=== PATIENT | female | born 1970 | race Hispanic/Latino ===

== ENCOUNTER 2022-09-20 15:54 | Emergency (ER) | payer OTHER ==
[~2022-09-20] VITALS: Ht 165.1 cm; Wt 92.5 kg
[2022-09-20] MEDS ORDERED: METOCLOPRAMIDE HCL 10 MG/2ML VIAL IM ONE (16:15)
[2022-09-20] MEDS ORDERED: DIPHENHYDRAMINE HCL 25 MG CAP PO ONE (16:15)
[2022-09-20] MEDS ORDERED: METOCLOPRAMIDE HCL 10 MG/2ML VIAL ONE (16:28)
[2022-09-20] MEDS ORDERED: REGLAN10 MG PO (17:58)
[2022-09-20] MEDS ORDERED: MAXALT MLT10 MG PO (17:58)
== END 2022-09-20 18:12 | disposition home or self-care (01) ==
LOC: ER 16:00
DX: R51.9 Headache, unspecified (principal); G89.29 Other chronic pain
CPT/HCPCS: 70450; 99283; J2765

== ENCOUNTER → 2022-09-20 | Emergency (ER) ==
[~2022-09-20] MED LIST: MAXALT MLT10 MG PO; REGLAN10 MG PO
== END | disposition home or self-care (01) ==
LOC: EDBD → ER 15:34
DX: R51.9 Headache, unspecified (principal); R11.2 Nausea with vomiting, unspecified; I12.0 Hypertensive chronic kidney disease with stage 5 chronic kidney disease or end stage renal disease; N18.6 End stage renal disease